=== PATIENT | female | born 1995 | race Caucasian/White ===

== ENCOUNTER 2023-10-22 14:53 | Outpatient (CLI) | payer OTHER, SELFPAY ==
--- NOTE | ~2023-10-22 | XR_ITS ---
XR elbow LT min 3V 10/22/2023 15:21 Indication: Left elbow pain Procedure: 3 views left elbow Comparison: No prior studies for comparison. Findings: There is a nondisplaced radial head fracture. There is a joint effusion. No other fracture. No foreign bodies. Impression: 1: Nondisplaced radial head fracture. Reviewed, dictated and finalized at location L. Impression: 1: Nondisplaced radial head fracture.
== END 2023-10-22 14:54 | disposition home or self-care (01) ==
LOC: ANHIMG 15:05
PROVIDERS: PCP Plastic Surgery; Visit Provider Plastic Surgery
DX: S52.125A Nondisplaced fracture of head of left radius, initial encounter for closed fracture (principal)
CPT/HCPCS: 73080

== ENCOUNTER 2024-01-28 09:00 | Outpatient (RCR) | payer OTHER, SELFPAY ==
--- NOTE | 2023-11-01 10:53 | OTOPEVAL1 ---
Assessment and note entered by Maycol Fraser, GIANA/Duyen, CHT Evaluation Information Diagnosis Displaced fracture of head of left radius Subjective Information Pt fell and fractured the left radial head 4 weeks ago on 10/04/23. She has been wearing a sling during the day and an elbow splint at night. She reports no pain at rest. Feeling stiff with movement. Workman's comp is in the process of approving ortho MD referral. She is a amado and right handed. Assessment OT Clinical Summary Patient referred to OT s/p left radial head fracture x4 weeks ago. She presents with residual weakness, stiffness, and pain that limits return of functional use of the left UE. Skilled OT indicated for HEP instruction/progression, therapeutic exercise, therapeutic activities, and modalities to facilitate optimal functional ROM and use of the left UE. Plan of Care Interventions Therapeutic Exercise,Manual Therapy,Therapeutic Activities,Hot Pack/Cold Pack,Paraffin OT Services Indicated Yes Treatment Frequency and 2x/week for 9 visits Duration These treatments will address the objective and functional deficits as defined above. The patient will be advanced safely and appropriately in order for the patient to progress towards his/her prior level of function. Additional exercises will be introduced and as well as a comprehensive home exercise program upon discharge, if needed, ?to ensure carryover of functional gains achieved in the clinic. This treatment plan has been reviewed and agreement upon by the patient.
--- NOTE | 2023-11-01 10:53 | OPREHPOC ---
Outpatient Therapy Plan of Care This is a Multidisciplinary Plan of Care that may contain components documented by all disciplines (PT, OT, and ST.) OT Problem 1 OT Problem #1 Knowledge Deficit OT Goal 1 Goal 1. Patient to be independent with HEP. Target Visit 9 OT Problem 2 OT Problem #2 Impaired Range of Motion OT Goal 1 Goal 1. Increase (L) elbow active ROM: - elbow flexion to 130 deg. - elbow extension to -10 deg. - forearm supination to 60 deg. Target Visit 9
--- NOTE | 2023-11-12 10:36 | PCOTNOTE ---
The patient treatment was not able to be completed 11-09-23. Patient was unable to get a ride. Will plan to continue treatment per plan of care.
--- NOTE | 2023-11-12 13:49 | PCOTNOTE ---
Letter of recommendation: Patient was provided a letter of recommendation on this date. Confirmation of patient non-weightbearing status per MD order.
--- NOTE | 2023-12-07 12:01 | OTOPEVAL1 ---
Assessment and note entered by Maycol Fraser, OTR/Duyen, CHT Evaluation Information Assessment Status Progress Diagnosis Displaced fracture of head of left radius Subjective Information Pt fell and fractured the left radial head 9 weeks ago on 10/04/23. She followed up with Dr. Franco last week and is cleared to begin passive ROM with no restrictions. She is no longer wearing a sling or splint. 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 States she has been feeling some clicking in the elbow. Overall no pain, just reports of soreness. Reports no paresthesia. Assessment OT Clinical Summary Patient referred to OT s/p left radial head fracture. She has progressed well over the past few weeks, regaining elbow extension and supination. She continues to be limited with elbow flexion. Grossly she continues to have weakness in the left UE as well. Continued skilled OT indicated for HEP instruction/progression, therapeutic exercise, therapeutic activities, and modalities to facilitate optimal functional ROM and use of the left UE. It is also recommended that she begins using a static progressive elbow brace to regain end range elbow flexion and extension. Will be ordering the brace through [facility] when a MD order/approval is obtained. Plan of Care Interventions Therapeutic Exercise,Manual Therapy,Therapeutic Activities,Hot Pack/Cold Pack,Paraffin OT Services Indicated Yes Treatment Frequency and 2x/week for 8 visits Duration These treatments will address the objective and functional deficits as defined above. The patient will be advanced safely and appropriately in order for the patient to progress towards his/her prior level of function. Additional exercises will be introduced and as well as a comprehensive home exercise program upon discharge, if needed, ?to ensure carryover of functional gains achieved in the clinic. This treatment plan has been reviewed and agreement upon by the patient.
--- NOTE | 2023-12-07 12:02 | OPREHPOC ---
Outpatient Therapy Plan of Care This is a Multidisciplinary Plan of Care that may contain components documented by all disciplines (PT, OT, and ST.) OT Problem 1 OT Problem #1 Knowledge Deficit OT Goal 1 Goal 1. Patient to be independent with HEP. ---OT POC UPDATE 12/07/23--- 1. Met, continue Target Visit 17 OT Problem 2 OT Problem #2 Impaired Range of Motion OT Goal 1 Goal 1. Increase (L) elbow active ROM: - elbow flexion to 130 deg. - elbow extension to -10 deg. - forearm supination to 60 deg. ---OT POC UPDATE 12/07/23--- 1. Progressing, but not met, continue 2. Progressing, but not met, continue 3. Met, upgrade to 75 degrees Target Visit 17 OT Problem 3 OT Problem #3 Impaired Strength OT Goal 1 Goal ---OT POC UPDATE 12/07/23--- New Strength Goals: 1. Patient to be able to complete elbow flexion and extension strengthening with red t-band x20 reps without pain. 2. 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 Target Visit 17
--- NOTE | 2024-01-14 10:54 | OTOPPROG ---
Assessment and note entered by Maycol Fraser, GIANA/Duyen, CHT Progress Update 01/14/24 Assessment Status Progress Diagnosis Displaced fracture of head of left radius Subjective Information Patient reports good progress with the elbow. She reports she is feeling stronger, but continues to feel stiff in the elbow. She has been wearing a static progressive elbow brace to facilitate improved flexion and extension of the elbow. She just received the brace 01/09/24 and has been compliant with wearing the brace 2x/day. Reporting no pain. 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 Elbow flexion improved from 110 to 122 degrees. Passive measuring 130 today. Elbow extension continues to measure -20 degrees. Forearm, wrist, and hand are WNL. Assessment OT Clinical Summary Patient referred to OT s/p left radial head fracture. She has progressed well over the past few weeks, improvements noted in flexibility and strength. She continues to be limited with elbow flexibility and has begun utilizing a static progressive brace for this. Continued skilled OT indicated for HEP instruction/progression, therapeutic exercise, therapeutic activities, and modalities to facilitate optimal functional ROM and use of the left UE. Plan of Care Interventions Therapeutic Exercise,Manual Therapy,Therapeutic Activities,Hot Pack/Cold Pack,Paraffin OT Services Indicated Yes Treatment Frequency and 1x/week for 5 visits Duration These treatments will address the objective and functional deficits as defined above. The patient will be advanced safely and appropriately in order for the patient to progress towards his/her prior level of function. Additional exercises will be introduced and as well as a comprehensive home exercise program upon discharge, if needed, ?to ensure carryover of functional gains achieved in the clinic. This treatment plan has been reviewed and agreement upon by the patient.
--- NOTE | 2024-01-14 10:54 | OPREHPOC ---
Outpatient Therapy Plan of Care This is a Multidisciplinary Plan of Care that may contain components documented by all disciplines (PT, OT, and ST.) OT Problem 1 OT Problem #1 Knowledge Deficit OT Goal 1 Goal 1. Patient to be independent with HEP. ---OT POC UPDATE 12/07/23--- 1. Met, continue ---OT POC UPDATE 01/14/24--- 1. Met, continue Target Visit 22 OT Problem 2 OT Problem #2 Impaired Range of Motion OT Goal 1 Goal 1. Increase (L) elbow active ROM: - elbow flexion to 130 deg. - elbow extension to -10 deg. - forearm supination to 60 deg. ---OT POC UPDATE 12/07/23--- 1. Progressing, but not met, continue 2. Progressing, but not met, continue 3. Met, upgrade to 75 degrees ---OT POC UPDATE 01/14/24--- 1. Progressing, but not met, continue 2. Not met, continue 3. Met Target Visit 22 OT Problem 3 OT Problem #3 Impaired Strength OT Goal 1 Goal ---OT POC UPDATE 12/07/23--- New Strength Goals: 1. Patient to be able to complete elbow flexion and extension strengthening with red t-band x20 reps without pain. 2. 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 ---OT POC UPDATE 01/14/24--- 1. Met 2. Not met Target Visit 22
== END 2024-01-30 23:59 | disposition home or self-care (01) ==
LOC: ANHOT 09:00
PROVIDERS: PCP Plastic Surgery; Visit Provider Orthopaedic Surgery
DX: S52.122D Displaced fracture of head of left radius, subsequent encounter for closed fracture with routine healing (principal)
CPT/HCPCS: 97018; 97110; 97140; 97165

== ENCOUNTER 2024-02-11 07:18 | Outpatient (RCR) | payer OTHER, SELFPAY ==
--- NOTE | 2024-02-29 10:42 | OTOPPROG ---
Assessment and note entered by Maycol Fraser, GIANA/Duyen, CHT OT Progress Update 02/29/24 Diagnosis Displaced fracture of head of left radius Subjective Information Patient reports continued progress with the elbow. She reports continued improvements with her ROM/ mobility. She states her elbow flexion/extension is getting better and she is still compliant with her static progressive elbow brace for this. She states her forearm rotation is feeling pretty much back to normal. She states her strength is improving, noting she is having no difficulties using the left arm to open heavy doors, carry trash bags, etc. 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 She states it's about 70% normal. Elbow flexion improved from 122 to 130 degrees. Passive measuring 135 today. Elbow extension improved from -20 to -15. Passive measuring -10 today. Forearm, wrist, and hand are WNL. Assessment OT Clinical Summary Patient referred to OT s/p left radial head fracture. She has progressed well over the past few weeks, improvements noted in flexibility and strength. She presents today reporting no functional limitations and no pain. Her elbow active ROM improved to 130 degrees of flexion and -15 degrees of extension. Passive ROM continues to improve also, measuring 135 degrees of flexion to -10 degrees of extension. Discussed importance of continuing her LUDA brace for static progressive stretching. Reviewed strengthening exercises today . Due to patient still utilizing the brace and continuing to make progress with her active and passive ROM of the elbow, we will schedule 1 follow up session in a month. In discussions with the patient, no treatment appointments are set up in the meantime. Plan to see her in 1 month to assess readiness for discharge and discharge the LUDA splint as well. Plan of Care Interventions Therapeutic Exercise,Therapeutic Activities OT Services Indicated Yes Treatment Frequency and Follow up in 1 month. Duration These treatments will address the objective and functional deficits as defined above. The patient will be advanced safely and appropriately in order for the patient to progress towards his/her prior level of function. Additional exercises will be introduced and as well as a comprehensive home exercise program upon discharge, if needed, ?to
--- NOTE | 2024-04-04 12:49 | PCOTNOTE ---
Patient called & cancelled scheduled appointment this date due to having to work. Called patient back to offer to reschedule, however she did not answer. Left voicemail asking her to call and let us know if she'd like to reschedule or if we are ok to discharge.
--- NOTE | 2024-04-14 09:13 | OTOPDC ---
Assessment and note entered by Maycol Fraser, GIANA/Duyen, CHT OT Discharge Notification 04/14/24 OT Clinical Summary Patient was seen for OT progress update on 02/29/24. Left elbow measurements that date: Elbow flexion improved from 122 to 130 degrees. Passive flexion measuring 135. Elbow extension improved from -20 to -15. Passive extension measuring -10. Forearm, wrist, and hand are WNL. She was continuing to wear her static progressive elbow extension brace. We scheduled one final follow up for 04/04/24, which she called and cancelled. At this time, this clinic is unable to get a hold of her to reschedule her follow up. Discharging OT. Please refer to progress note dated 02/29/24 for most recent update summary. Thank you for this referral.
== END 2024-04-14 11:50 | disposition home or self-care (01) ==
LOC: ANHOT 07:18
PROVIDERS: PCP Plastic Surgery; Visit Provider Orthopaedic Surgery
DX: S52.122D Displaced fracture of head of left radius, subsequent encounter for closed fracture with routine healing (principal)
CPT/HCPCS: 97110